=== PATIENT | female | born 1985 | race Two or more races ===

== ENCOUNTER 2019-05-19 19:48 | Outpatient (CLI) | payer OTHER ==
[2019-05-19] MEDS ORDERED: LEVOTHYROXINE25 MCG PO (20:48)
[2019-05-19] MEDS ORDERED: PRENATAL CAPLE1 EAC1 PO (20:49)
[2019-05-20] MEDS ORDERED: PROTONIX40 MG PO (12:44)
== END 2019-05-20 14:39 | disposition home or self-care (01) ==
LOC: OBS/DEL 19:48
DX: O26.893 Other specified pregnancy related conditions, third trimester (principal); Z34.03 Encounter for supervision of normal first pregnancy, third trimester; T62.8X1A Toxic effect of other specified noxious substances eaten as food, accidental (unintentional), initial encounter; K29.00 Acute gastritis without bleeding

== ENCOUNTER 2019-07-10 19:39 | Outpatient (CLI) | payer OTHER ==
[~2019-07-10 19:39] MED LIST: LEVOTHYROXINE25 MCG PO; PRENATAL CAPLE1 EAC1 PO; PROTONIX40 MG PO
== END 2019-07-11 06:59 | disposition home or self-care (01) ==
LOC: OBS/DEL 19:39
DX: O26.893 Other specified pregnancy related conditions, third trimester (principal); J45.909 Unspecified asthma, uncomplicated; R05 Cough; Z34.03 Encounter for supervision of normal first pregnancy, third trimester

== ENCOUNTER 2019-07-17 05:50 | Inpatient (IN) | payer OTHER ==
[~2019-07-17] VITALS: Ht 147.3 cm; Wt 3.2 kg
== END 2019-07-19 13:07 | disposition home or self-care (01) | DRG 788 ==
LOC: LDR 05:50 → OB/GYN 05:50 → O/R 16:30 → OB/GYN 17:55
PROVIDERS: ADMIT Obstetrics & Gynecology
PROC: 3E0P7VZ Introduction of Hormone into Female Reproductive, Via Natural or Artificial Opening (ICD-10-PCS; 2019-07-17)
PROC: 3E033VJ Introduction of Other Hormone into Peripheral Vein, Percutaneous Approach (ICD-10-PCS; 2019-07-17)
PROC: 4A1HXCZ Monitoring of Products of Conception, Cardiac Rate, External Approach (ICD-10-PCS; 2019-07-17)
PROC: 10D00Z1 Extraction of Products of Conception, Low, Open Approach (ICD-10-PCS; principal; 2019-07-17 16:00)
DX: O82 Encounter for cesarean delivery without indication (principal); O61.0 Failed medical induction of labor; Z3A.39 39 weeks gestation of pregnancy; Z37.0 Single live birth